=== PATIENT | male | born 1945 | race Caucasian/White ===

== ENCOUNTER 2024-12-14 17:30 | Inpatient (IN) | payer OTHER, MEDICARE ==
[~2024-12-14] VITALS: Ht 167.6 cm; Wt 68.6 kg
--- NOTE | 2024-12-14 17:49 | ELECTROCARDIOGRAPH REPORT ---
[facility] Test Date: 2024-12-14 Test Time: 17:43:46 Pat Name: JAYSHREE SEGOVIA Department: EMERGENCY ROOM Room: Gender: M Administrative Secretary: JENNI : 1945 Requested By: EMILY PADILLA Order Number: [id number] Reading MD: Dr. Elvin Gross Measurements Intervals [place] Rate: 116 P: 0 MO: 0 QRS: 68 QRSD: 96 T: 241 QT: 334 QTc: 465 Interpretive Statements Atrial fibrillation Probable LVH with secondary repol abnrm Electronically Signed On 12-14-2024 18:46:[address] Elvin Gross Please click the below link to view image of tracing.
--- NOTE | 2024-12-14 20:27 | Physician Documentation ---
History of Present Illness ~ Chief Complaint: Hip pain Stated Complaint: TRANSFER Time Seen by MD: 19:21 OK to notify your PCP?: Yes Source: patient, RN/MD, EMS, RN notes reviewed, EMS notes reviewed, old records Mode of Arrival: EMS Exam Limitations: other (dementia) HPI PATIENT SEEN IN BED 8 This patient is a 79 y/o male transferred from [facility] for left hip fracture s/p mechanical fall. Per records from outside facility, patient has a history of afib and is taking Pradaxa. Denies head strike or LOC at time of fall, stating he lost his balance and fell onto his left side. Now complaining of pain to his left leg. Images from [place] shows left hip fracture. All other images negative including CT head and spine. Records indicate patient had echocardiogram showing EF of 25-30% at outside facility. He is somewhat confused, but this is his reported baseline per old records as he has a history of dementia. HPI somewhat limited to record and RN report as patient is unable to give entire history, due to dementia. Tetanus within 5 Years?: Yes Medication Reconciliation Allergies: Coded Allergies: rosuvastatin (Unverified Allergy, Intermediate, 12/14/24) erythromycin base (Verified Allergy, Unknown, 12/14/24) ITCHY Uncoded Allergies: EGGS (Allergy, Unknown, 12/14/24) Scheduled Atorvastatin Calcium* (Lipitor*), 1 TAB PO QAM, (Reported) Carvedilol* (Coreg*), 1 TABLET PO BID, (Reported) Empagliflozin (Jardiance), 1 TAB PO DAILY, (Reported) Furosemide* (Lasix*), 2 TAB PO BID, (Reported) Insulin Glargine,Hum.rec.anlog* (Lantus*), 10 UNITS SUBCUT HS, (Reported) Insulin Lispro (Insulin Lispro), Unknown Dose SUBCUT ACHS, (Reported) Losartan Potassium* (Cozaar*), 1 TAB PO DAILY, (Reported) Tamsulosin Hcl* (Flomax*), 1 CAP PO HS, (Reported) Scheduled PRN Trazodone HCl (Trazodone HCl), 1 TAB PO HS PRN for pain, (Reported) Past Medical History Past Medical History: CVA/TIA/Stroke, Dementia, Atrial Fibrillation, Congestive Heart Failure, Hypertension, Myocardial Infarction, Anemia, Chronic Kidney Disease Smoking Status: Unknown if ever smoked Unable to obtain complete PMH: dementia Review of Systems All Other Systems at this time: Reviewed and Negative Unable to obtain complete ROS: dementia Physical Exam Vital Signs: RN Vital Signs have been reviewed: Yes, Temperature: 98.3, Source: Oral, Heart Rate: 117, Respiratory Rate: 16, BP: 100/52, Pulse Oximetry: 97, Weight: 75.800 Oxygen Flow Rate: 2.0 Physical Exam General: The patient is well developed, well nourished, nontoxic appearing and is in no acute distress. Mild confusion. Skin: [place], warm and dry with no rashes. HEENT: Head was normocephalic and atraumatic. Eyes - pupils equal, round, reactive to light and accommodation. Extraocular movements were intact. Conjunctivae were nonicteric. Ears - bilateral tympanic membranes were normal. The mouth and oropharynx were clear with moist mucous membranes. There were no pharyngeal exudates or erythema. Neck: Supple and nontender. There was no jugular venous distention, lymphadenopathy, thyromegaly or masses. Chest: Clear to auscultation bilaterally without wheezes, rales or rhonchi. No accessory muscle use. No dullness to percussion. Heart: Rate regular and rhythmic. S1, S2. No murmurs. Palpation of the chest wall was normal. No rubs or thrills. Abdomen: Soft, nontender and nondistended. Positive bowel sounds. No guarding or rebound. No hepatosplenomegaly or palpable masses. Extremities: Left lower extremity is shortened, externally rotated ,and tender to palpation over the left greater trochanter. Pitting edema to bilateral lower extremities. Pulses were equal and symmetric. Neurologic: Cranial nerves II-XII were intact. Sensation was intact to light touch throughout. Motor strength was 5/5 in all four extremities. Deep tendon reflexes were intact in both upper and lower extremities. Progress Progress Note 2120: Message left with orthopedist, Dr. Harry for consult. 2124: Paged Hospitalist 2210: Case discussed with hospitalist who agrees to evaluate patient for admission. Results/Orders Reviewed/noted all lab results: Yes Results/Orders Orders - ELVIN GROSS MD Chest,Single View (12/14/24 19:59) Monitor (12/14/24 19:59) Oxygen (12/14/24 19:59) Saline Lock (12/14/24 19:59) Page Hospitalist (12/14/24 21:25) Fill Out Med Reconciliation (12/14/24 21:25) Echocardiogram (12/15/24 00:11) Completed Orders - ELVIN GROSS MD Cbc/Diff (12/14/24 19:59) MG (12/14/24 19:59) Pt Inr (12/14/24 19:59) PTT (12/14/24 19:59) PBNP (12/14/24 19:59) Chest,Single View (12/14/24 19:59) Type And Screen (12/14/24 19:59) BMP (12/14/24 19:59) Hs Troponin I W Calculations (12/14/24 19:59) Pelvis,Limited 1-2 Views (12/14/24 ) Hgb A1c (12/14/24 20:20) Ferritin (12/14/24 20:20) Echocardiogram (12/15/24 00:11) Laboratory Tests Test 12/14/24 20:20 White Blood Count 7.8 Red Blood Count 3.17 L Hemoglobin 9.1 L Hematocrit 28.1 L Mean Corpuscular Volume 88.6 Mean Corpuscular Hemoglobin 28.7 Mean Corpuscular Hemoglobin Concent 32.4 L Red Cell Distribution Width 16.5 H Platelet Count 254 Mean Platelet Volume 7.6 Neutrophils (%) (Auto) 79.6 H Lymphocytes (%) (Auto) 11.4 L Monocytes (%) (Auto) 6.6 Eosinophils (%) (Auto) 1.7 Basophils (%) (Auto) 0.7 Neutrophils # (Auto) 6.2 Lymphocytes # (Auto) 0.9 L Monocytes # (Auto) 0.5 Eosinophils # (Auto) 0.1 Basophils # (Auto) 0.1 CBC Comment Prothrombin Time 17.5 H INR International Normalized Ratio 1.8 Activated Partial Thromboplast Time 49 H Coagulation Comments Sodium Level 141 Potassium Level 3.6 Chloride Level 100 Carbon Dioxide Level 34.7 H Anion Gap 6 L Blood Urea Nitrogen 28 H Creatinine 1.84 H Estimated GFR/1.73 m2 36 BUN/Creatinine Ratio 15.2 Glucose Level 265 H Hemoglobin A1c 11.1 H Calcium Level 9.1 Magnesium Level 1.9 Ferritin 40 Troponin I High Sensitivity 25 Pro-B-Type Natriuretic Peptide 74333 H Albumin 3.3 L Chemistry Comments Re-Evaluation Re-Evaluation : Re-Evaluation: Improved Progress Patient was transferred from [place] for a hip fracture. X-rays were reobtained. Patient was given heparin as well as later pain meds from the hospitalist. I consulted Orthopedic surgery regarding the management of the patient. Laboratory work was reobtained. Patient's chemistry showed some prerenal dehydration and renal insufficiency with a BUN of 28 creatinine 1.84. CO2 shows some hypercarbia with CO2 of 34.7[place] [address]. Laboratory work shows mild anemia with a hemoglobin 9 hematocrit of 28. Urinalysis was within normal limits and reassuring. Preoperative workup was then started. CT scan of the lower extremity showed a comminuted periprosthetic proximal femoral fracture without significant displacement this information was provided to Dr. Rodriguez who kindly agreed to admit the patient for further workup and care. Continuous police or patrol park officer interpretation shows sinus tachycardia heart rate 110s, abnormal, my interpretation. Pulse oximetry monitor interpretation shows hypoxemia at 88% on room air, abnormal, my interpretation. 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 Elvin Gross Measurements Intervals [place] Rate: 116 P: 0 CO: 0 QRS: 68 QRSD: 96 T: 241 QT: 334 QTc: 465 Interpretive Statements Atrial fibrillation Probable LVH with secondary repol abnrm Electronically Signed On 12-14-2024 18:46:[address] Elvin Gross Please click the below link to view image of tracing. EKG Date and Time:12/14/24 174 Electronically Signed by: ELVIN GROSS MD Date and Time: 12/14/24 184 NO PRIMARY CARE PROVIDER~ cc: ~ Chest X-Ray : Interpreted By: both Additional Comments [address] [address] DIAGNOSTIC RADIOLOGY Patient: JAYSHREE SEGOVIA Medical Record: [id number] [facility] : 1945, Age: 79 Sex: Male Location: ER Patient Status: [facility] ER Service Date/Time: 12/14/241958 Ordering Physician: ELVIN GROSS MD Exam: CHEST,SINGLE VIEW CHEST RADIOGRAPH Indication: CHEST PAIN Technique: Single frontal view of the chest was obtained Comparison: None FINDINGS: Lines and Tubes: None Lungs and Pleura: Large right pleural effusion with adjacent airspace disease. Possible small left pleural effusion. Possible 8 mm pulmonary nodule in the left upper lobe. No pneumothorax. Cardiomediastinal contours: Partially obscured Bones: No acute osseous abnormality. IMPRESSION: Large right pleural effusion with adjacent airspace disease. Possible small left pleural effusion. Possible 8 mm pulmonary nodule in the left upper lobe. Correlate with CT. Electronically Signed by:DHAVAL CONRAD MD Date & Time: 12/14/242051 Dictated by: DHAVAL CONRAD MD Dictation date and time: 12/14/242051 Primary Care Provider: NO PRIMARY CARE PROVIDER cc: ELVIN GROSS MD ~ IMAGES REVIEWED BY EDMD DR. GROSS WHO AGREES WITH ABOVE FINDINGS Medical Decision Making Additional info obtained from: old records Differential Dx:Considerations: Include: Fracture(s), Encephalopathy, Other Departure Time of Disposition: 21:25 Disposition: ADMITTED INPATIENT Admitted to Inpatient Unit: yes, to hospitalist Admission Level of Care: Ortho with Tele Impression: Primary Impression: Hip fracture, left Qualified Codes: S72.002A - Fracture of unspecified part of neck of left femur, initial encounter for closed fracture Additional Impressions: Renal insufficiency CHF (congestive heart failure) Qualified Codes: I50.9 - Heart failure, unspecified Condition: Guarded Referrals: NO PRIMARY CARE PROVIDER (PCP) Education Educated: Patient Educated regarding: diagnosis, treatment, prognosis, need for follow up Critical Care Note Total Time (mins): 30 Critical Care Note The very real possibility of a deterioration of this patient's condition required the highest level of my preparedness for sudden, emergent intervention. I provided critical care services, which included medication orders, frequent reevaluations of the patient's condition and response to treatment, ordering and reviewing test results, and discussing the case with various consultants. Excludes time spent performing separately billable procedures. The critical care time associated with the care of the patient was 30 minutes. Signature Scribe Signature: Scribed for Elvin Gross MD by Gail Ugarte . 12/15/24 05:39 Attestation: The note accurately reflects work and decisions made by me.Elvin Gross MD 12/19/24 22:43 ELVIN GROSS MD Dec 14, 2024 20:27
[2024-12-14 20:31] LABS: MEAN PLATELET VOLUME 7.6 FL (7.4-10.4); RED CELL DISTRIBUTION WIDTH 16.5 % (11.5-14.5)
[2024-12-14 20:42] LABS: APTT 49 SECONDS (22-32); INR 1.8 INR
[2024-12-14 20:53] LABS: CREATININE 1.84 MG/DL (0.60-1.10); PRO BRAIN NATRIURETIC PEPTIDE 20226 PG/ML (0-450); TOTAL CARBON DIOXIDE 34.7 MMOL/L (24-32); eCRCL 30 ML/MIN; eGFR 36 ML/MIN
--- NOTE | 2024-12-14 20:54 | RADIOLOGY REPORT ---
CHEST RADIOGRAPH Indication: CHEST PAIN Technique: Single frontal view of the chest was obtained Comparison: None FINDINGS: Lines and Tubes: None Lungs and Pleura: Large right pleural effusion with adjacent airspace disease. Possible small left pl eural effusion. Possible 8 mm pulmonary nodule in the left upper lobe. No pneumothorax. Cardiomediastinal contours: Partially obscured Bones: No acute osseous abnormality. IMPRESSION: Large right pleural effusion with adjacent airspace disease. Possible small left pleural effusion. Possible 8 mm pulmonary nodule in the left upper lobe. Correlate with CT.
[2024-12-14] MEDS ORDERED: EMPA10TA PO (21:12)
[2024-12-14] MEDS ORDERED: CARV-50 PO (21:12)
[2024-12-14] MEDS ORDERED: LOSA-415 PO (21:12)
[2024-12-14] MEDS ORDERED: FURO-150 PO (21:14)
[2024-12-14] MEDS ORDERED: LANTUS SUBCUT (21:53)
[2024-12-14] MEDS ORDERED: INSU100V49 SUBCUT (21:58)
[2024-12-14] MEDS ORDERED: magnesium sulf-water 2g/50mL 50 ML IV PRN (22:20)
[2024-12-14] MEDS ORDERED: ondansetron/PF 4mg/2ml inj IV PRN (22:20)
[2024-12-14] MEDS ORDERED: potassium Cl 40MEQ/1/2NS 520ml 520 ML IV PRN (22:20)
[2024-12-14] MEDS ORDERED: HYDROcodone/acetaminophen 5mg/325mg tablet PO PRN (22:20)
[2024-12-14] MEDS ORDERED: mag hydrox/Alum hydrox/simeth 30ml oral suspension PO PRN (22:20)
[2024-12-14] MEDS ORDERED: magnesium hydroxide 30ml (MOM) UD suspension PO PRN (22:20)
[2024-12-14] MEDS ORDERED: HYDROmorphone/PF 0.2 MG/ML SYRINGE IV PRN (22:20)
[2024-12-14] MEDS ORDERED: bisacodyl 10mg suppository rectal RC PRN (22:20)
[2024-12-14] MEDS ORDERED: magnesium Cl slow-release 64mg tablet PO PRN (22:20)
[2024-12-14] MEDS ORDERED: potassium Cl 20 mEq SR tablet PO PRN (22:20)
[2024-12-14] MEDS ORDERED: HYDROmorphone inj. 0.5 MG/0.5 ML DISP.SYRIN IV PRN (22:20)
[2024-12-14] MEDS ORDERED: magnesium sulf-water 4G/100mL 100 ML IV PRN (22:20)
--- NOTE | 2024-12-14 22:27 | HISTORY AND PHYSICAL-Residence ---
History & Physical Providers to CC Resident Creating Document: SURYA WILEY, RES ~ History of Present Illness Reason for Admit\Complaint: Left hip pain History of Present Illness This is a 79-year-old male with a history of stroke, dementia, AFib on Pradaxa, CHF with reduced ejection fraction 25-30%, hypertension, [place], chronic anemia, CKD was transferred from [facility] for a left intertrochanteric hip fracture. Patient has baseline dementia and is unable to provide reliable history. He is awake but not oriented to time place, person. He thinks he was in the hospital for more than two days. Per records from [facility], he had a left intertrochanteric periprosthetic fracture and they were not able to operate on him due to unavailability of anesthesia. Hence he was transferred to our facility. Patient mentions that he has pain in his left leg but is unable to rate the pain describe any further about it. Per records he fell due to loss of balance on his left side and injured his left elbow, leg. There was no head strike or loss of consciousness at the time of fall according to his . Patient is not able to remember his box toe maker and does not have a PCP. According to him his gives him medications every day. He also mentions he has trouble breathing occasionally but is unable to describe further. ED course at [facility]: CT head and spine showed no acute intracranial abnormalities except for degenerative changes in spine. CT pelvis without contrast showed acute comminuted minimally displaced periprosthetic fracture in the left hip. Also showed left total hip arthroplasty with intact hardware. Labs reviewed. He was transferred for orthopedic surgery. Allergies: Coded Allergies: rosuvastatin (Unverified Allergy, Intermediate, 12/14/24) erythromycin base (Verified Allergy, Unknown, 12/14/24) ITCHY Uncoded Allergies: EGGS (Allergy, Unknown, 12/14/24) Home Medications Home Medications Active Reported Insulin Lispro 100 Unit/Ml Vial Unknown Dose SUBCUT ACHS Lantus* (Insulin Glargine) 100 Unit/1 Ml Vial 10 Units SUBCUT HS 30 Days Lasix* (Furosemide) 20 Mg Tablet 2 Tab PO BID Jardiance (Empagliflozin) 10 Mg Tablet 1 Tab PO DAILY 30 Days Coreg* (Carvedilol) 12.5 Mg Tablet 1 Tablet PO BID Cozaar* (Losartan Potassium) 25 Mg Tablet 1 Tab PO DAILY 30 Days Past Medical History Past Medical History CVA/TIA/Stroke, Dementia, Atrial Fibrillation, Congestive Heart Failure, Hypertension, Myocardial Infarction, Anemia, Chronic Kidney Disease Past Surgical History Surgical History Comment Left hip total arthroplasty. Further history could not be obtained Past Social History Social History Comment Unreliable but patient mentions that he has smoked at the age of 16 for a few years and quit and restarted again. He smoked cigarettes. He mentions that he consumed alcohol in the past but quit now. Denies any drug use. He lives at home with his who takes care of him. He uses a walker to ambulate at home ROS ROS Unable to obtain Unable to obtain: dementia Exam Vitals: Vital Signs Date Time Temp Pulse Resp B/P (MAP) Pulse Ox O2 Delivery O2 Flow Rate FiO2 12/14/24 21:07 99 Nasal Cannula* 2 28 12/14/24 21:04 98.2 126 16 118/75 (89) General: General: The patient is well developed, well nourished, nontoxic appearing and is in no acute distress. Pale appearing, Mild confusion, not oriented to person place or time. Currently on 2 L oxygen, unknown if he uses oxygen at home. Skin: [place], warm and dry with no rashes. HEENT: Head was normocephalic and atraumatic. Eyes - pupils equal, round, reactive to light and accommodation. Extraocular movements were intact. Conjunctivae were nonicteric. Ears - bilateral tympanic membranes were normal. The mouth and oropharynx were clear with moist mucous membranes. There were no pharyngeal exudates or erythema. Neck: Supple and nontender. There was no jugular venous distention, lymphadenopathy, thyromegaly or masses. Chest: Decreased breath sounds in the right lower lung, no wheezes, rales or rhonchi. No accessory muscle use. Heart: Rate regular and rhythmic. S1, S2. No murmurs. Palpation of the chest wall was normal. No rubs or thrills. Abdomen: Soft, nontender and nondistended. Positive bowel sounds. No guarding or rebound. No hepatosplenomegaly or palpable masses. Extremities: Left lower extremity is shortened, externally rotated ,and tender to palpation over the left greater trochanter. Pitting edema to bilateral lower extremities. Pulses were equal and symmetric. Neurologic: Cranial nerves II-XII were intact. Sensation was intact to light touch throughout. Other exam was limited due to acute fracture Diagnostic Data Last Recorded Lab Results: 12/14/24201912/14/242019 Diagnostic Data: Laboratory Tests Test 12/14/24 20:20 Prothrombin Time 17.5 SECONDS (9.0-12.0) H INR International Normalized Ratio 1.8 INR Activated Partial Thromboplast Time 49 SECONDS (22-32) H Coagulation Comments Advance Care Planning Advanced Care plannin - 30 Minutes ( Jess [phone] is his POA. Consult in the a.m. to obtain code status. Currently admitting as a full code.) Additional Plan Acute commuted minimally displaced left intertrochanteric periprosthetic fracture S/p total hip arthroplasty with intact hardware CT pelvis without contrast shows acute comminuted minimally displaced left periprosthetic intertrochanteric fracture. Dr. Harry was consulted by the ED physician. NPO after midnight for possible surgery. Hold Pradaxa for anticipated surgery. Type and screen ordered. Revised cardiac risk index is three points which is 15% risk of major cardiac event. Re-evaluate in the a.m. with box toe maker and anesthesiologist if patient can be cleared for hip surgery given extensive cardiac history. Atrial fibrillation with RVR EKG shows atrial fibrillation with RVR with heart rate of 118. One dose of IV metoprolol given. Continue home medication carvedilol 12.5 mg b.i.d. after med rec. Med rec is pending. Hold Pradaxa. Amadou Vasc score greater than two. Continue telemetry monitoring Acute hypoxemic respiratory failure CHF with reduced ejection fraction, EF 25-30% Large right pleural effusion Metabolic alkalosis Pulmonary hypertension Pro BNP is . Chest x-ray shows large right pleural effusion and possible small left pleural effusion. We need a consent from for thoracocentesis as patient is unable to make decisions. Thoracentesis not ordered yet. Evaluate in a.m. with repeat chest x-ray if effusion size decreases after administering Lasix. Patient takes Lasix 20 mg b.i.d. at home. Started on Lasix IV 40 mg b.i.d. scheduled. Monitor I&O. Continue losartan, Jardiance and carvedilol after med rec. Consider adding spironolactone/Entresto with caution given history of CKD. Echocardiogram done at [facility] today shows EF of 25-30% with left ventricular hypertrophy, severely reduced right ventricle function and RV, LV dilation. Pulmonary artery systolic pressure is 57 mmHg. ABG ordered in the view of metabolic alkalosis. Follow up. Respiratory therapy consulted. Duo nebs q.4 PRN. GLADYS versus CKD, unknown stage and baseline Possible cardiorenal syndrome BUN is elevated 28, creatinine 1.84. Patient does have a history of CKD with unknown baseline. Continue monitoring CMP. Avoid nephrotoxic medication. Patient does not have a PCP hence baseline is unknown. Consider renal ultrasonogram and urine lytes if creatinine continues to trend upwards. Normocytic normochromic anemia Likely anemia of chronic disease secondary to CKD Hemoglobin is 9.1. Unknown baseline. Iron, TIBC, serum ferritin, FOBT ordered. Follow up. Patient is unable to give any history about melena or GI bleed. He is currently on Pradaxa which is on hold for possible surgery. Mild protein calorie malnutrition Albumin 3.3. Ensure t.i.d. Hypertension Continue home medications losartan 25 mg and Coreg 12.5 mg b.i.d. after med rec. Type 2 diabetes mellitus Follow up with A1c and lipid panel. Blood sugar at [place] was 313. Patient takes 10 units Lantus and lispro as needed at home. Currently on hyperglycemia protocol with 15 Units Lantus Per Weight calculation. Hyperlipidemia Continue atorvastatin 40 mg p.o. daily after med rec. BPH Continue medication Flomax 0.4 mg after med rec Code Status: Full code, reassess in the a.m. calling his DVT Prophylaxis: Heparin Analgesia/Sedation: [place], morphine p.r.n. Lines/Tubes: PIV Gi Prophylaxis: None Nutrition: NPO after midnight PT: Yes, nonweightbearing for now, recommendations per ortho Prognosis: Guarded Disposition: Admit to ortho floor with telemetry monitoring Surya Kerr MD Internal Medicine Resident PGY-1 I saw and discussed the pt with the resident agree with plan of care as documented Consult Cardiology, Ortho and Pulmonary (for effusion) OK with Lasix Monitor closely Monitor labs as well. Thank you Date of Service: Dec 14, 2024 Billing Provider: ISAMAR JOVEL MD,SURYA KERR, RES Dec 14, 2024 22:27 ISAMAR JOVEL MD Dec 15, 2024 02:44
[2024-12-14] MEDS ORDERED: ATOR40TA PO (22:36)
[2024-12-14] MEDS ORDERED: TAMS-55 PO (22:36)
[2024-12-14] MEDS ORDERED: TRAZ-251 PO (22:37)
[2024-12-14] MEDS ORDERED: dextrose 50%-water 50ml dispensing syringe IV PRN ×2 (23:15)
[2024-12-14] MEDS ORDERED: glucagon, human recombinant 1mg kit SUBCUT PRN (23:15)
[2024-12-14] MEDS ORDERED: DEXTROSE 15 GM of carb/4 tabs (each vial/BOTTLE has 4 tablets) PO PRN ×2 (23:15)
[2024-12-14] MEDS ORDERED: ipratropium/albuterol 3ml nebule NEB PRN (23:15)
[2024-12-15] VITALS (25 sets, daily range): BP systolic 88–126; BP diastolic 40–75; PULSE 59–132; RESP 10–18; TEMP 97.3–98.1; O2SAT 87–100
[2024-12-15] MEDS: metoprolol tartrate 1mg/ml inj IV SCH (00:25)
[2024-12-15] MEDS: insulin glargine (Lantus) pen - multi-dose SQ ONE (00:28)
[2024-12-15] MEDS: INSULIN LISPRO 100 UNIT/ML INSULN.PEN MULTI-DOSE SQ ONE (00:28)
[2024-12-15] MEDS: insulin glargine (Lantus) pen - multi-dose SQ SCH ×2 (00:49→22:51)
[2024-12-15 01:04] LABS: ABG BASE EXCESS 7.5 mmol/L (-2.0-3.0); ABG HCO3 31.9 mmol/L (21.0-28.0); ABG OXYGEN SATURATION 94.5 % (94.0-98.0); ABG PCO2 (T) 44.7 mmHg (35.0-48.0); ABG PH (T) 7.471 (7.350-7.450); ABG PO2 (T) 69.2 mmHg (83.0-108.0); FCOHb 0.3 % (0.5-1.5); FHHb 5.5 % (0.0-5.0); FIO2 24.0 mmHg/%; FLOW 1 L/min; FMetHb 0.3 % (0.0-1.5); FO2Hb 93.9 % (94.0-98.0); MODE NASAL CANNULA; PATIENT TEMPERATURE 36.8; TOTAL HEMOGLOBIN 8.7 G/dl (13.5-17.5)
[2024-12-15 01:34] LABS: % IRON SATURATION 12 % (11-46)
[2024-12-15] MEDS: furosemide 10 MG/1 ML 10ml inj IV SCH ×2 (02:37→22:28)
[2024-12-15 02:52] LABS: MEAN PLATELET VOLUME 7.5 FL (7.4-10.4); RED CELL DISTRIBUTION WIDTH 16.7 % (11.5-14.5)
[2024-12-15 03:04] LABS: CHOL/HDL RATIO 3.0 (0.00-4.99); CREATININE 1.97 MG/DL (0.60-1.10); LDL CHOLESTEROL 48 MG/DL (50-100); TOTAL CARBON DIOXIDE 36.3 MMOL/L (24-32); eCRCL 28 ML/MIN; eGFR 33 ML/MIN
[2024-12-15] MEDS: INSULIN LISPRO 100 UNIT/ML INSULN.PEN MULTI-DOSE SQ SCH (07:00)
[2024-12-15] MEDS: lactose-reduced food (Ensure Enlive) - 237ml bottle PO SCH (08:00)
[2024-12-15] MEDS: heparin, porcine 5000 units/ml vial SQ SCH (08:37)
[2024-12-15] MEDS: docusate sod 100mg capsule PO SCH (08:37)
[2024-12-15] MEDS: K and/or MAG REPLACEMENT MC SCH (08:40)
[2024-12-15] MEDS: potassium Cl 20 mEq SR tablet PO PRN (08:40)
[2024-12-15] MEDS: HYDROcodone/acetaminophen 10/325mg tab PO PRN (10:30)
--- NOTE | 2024-12-15 11:58 | PROGRESS NOTE ---
Progress Note Ortho Ortho Consult ROS ROS No new complaints Problem/Assessment/Plan Additional Plan imaging fromn outside is inadequate, ordered new xr and CT Results/Orders Result Diagram: 12/15/24 0234 12/15/24 0234 BRITTANY NEVES Jr., MD Dec 15, 2024 11:58
[2024-12-15] MEDS: regadenoson 0.4mg/5ml syringe IV ONE (12:20)
--- NOTE | 2024-12-15 14:36 | RADIOLOGY REPORT ---
CLINICAL INDICATION: periprosthetic fx TECHNIQUE: DI HIP UNILATERAL 2 VIEWS Comparison: None FINDINGS/IMPRESSION: : Left hip arthroplasty in place. Proximal left femoral cerclage wire. There is a mildly displaced periprosthetic fracture of the proximal left femur. Heterotopic ossification is seen adjacent to the proximal left femur. Bony demineralization. Calcified athero sclerosis.
--- NOTE | 2024-12-15 15:02 | PROGRESS NOTE- Residence ---
Progress Note - Resident Providers to CC Resident Creating Document: NORA FAITH, RES ~ Antibiotic Timeout Antibiotic Ordered?: No Subjective The patient has been evaluated at the bedside. Reports improvement of hip pain. Stated that he did not ask for help. Dr. Nieto at the bedside recommended Lexiscan. The patient accepted the exam. Objective Vital Signs Date Time Temp Pulse Resp B/P (MAP) Pulse Ox O2 Delivery O2 Flow Rate FiO2 12/15/24 12:35 118 18 119/66 97 Nasal Cannula 2.0 12/15/24 10:47 97.8 12/15/24 00:56 24 Physical exam: General: Awake, oriented to person and place but not in time. Non cooperative during physical exam. HEENT: Conjunctive are pale, sclerae clear, no icterus, pupil is equal in both sides, reactive to light, no ear discharge, no pharyngeal erythema or an edema. Neck: Supple, no JVD, no lymphadenopathy and thyromegaly. Chest: Diminished air entry in the right side of the thorax. Mild wheezing noticed, no crackles or rhonchi evidenced. Cardiovascular: S1-S2 regular sinus rhythm and, regular rate, no gallops, no rubs, no murmurs Abdomen: No visible peristalsis, Bowel sounds present on auscultation, soft, nontender, no guarding, no rigidity Extremities: No obvious deformities, 1+ pedal edema bilaterally, capillary refill intact, peripheral pulsations are intact on both sides, left lower extremity shortened it, tender to palpation in the level of the left hip. Central Nervous System: No focal neurological deficits, no motor or sensory weakness in all 4 extremities, could move all 4 extremities, 2+ deep tendon reflexes, negative Babinski. Musculoskeletal: left lower extremity shortened it, tender to palpation in the level of the left hip, no scoliosis and back tenderness. Skin: Warm and dry. Result Diagram: 12/15/24 0234 12/15/24 0234 Coagulation Studies Laboratory Tests Test 12/14/24 20:20 Prothrombin Time 17.5 SECONDS (9.0-12.0) H INR International Normalized Ratio 1.8 INR Activated Partial Thromboplast Time 49 SECONDS (22-32) H Coagulation Comments Assessment Assessment 79-year-old male patient came to the hospital transferred from [facility] due to left intertrochanteric hip fracture. Per records of [facility] the patient was transferred to [facility] due to unavailability of anesthesia. Plan Plan Acute commuted minimally displaced left intertrochanteric periprosthetic fracture S/p total hip arthroplasty with intact hardware CT pelvis without contrast shows acute comminuted minimally displaced left periprosthetic intertrochanteric fracture. Dr. Harry was consulted by the ED physician. NPO after midnight for possible surgery. Hold Pradaxa for anticipated surgery. Type and screen ordered. Revised cardiac risk index is three points which is 15% risk of major cardiac event. Re-evaluate in the a.m. with dye range feeder and anesthesiologist if patient can be cleared for hip surgery given extensive cardiac history. 12/15/2024: Dr. Harry evaluated the patient. Ordered CT scan and x-ray of the hip. The patient will need cardiac clearance. Hip x-ray: Left hip arthroplasty in place. Proximal left femoral cerclage wire. There is a mildly displaced periprosthetic fracture of the proximal left femur. Heterotopic ossification is seen adjacent to the proximal left femur. Bony demineralization. Calcified athero sclerosis. Atrial fibrillation with RVR EKG shows atrial fibrillation with RVR with heart rate of 118. One dose of IV metoprolol given. Continue home medication carvedilol 12.5 mg b.i.d. after med rec. Med rec is pending. Hold Pradaxa. Amadou Vasc score greater than two. Continue telemetry monitoring. 12/15/2024: Dr. Figueroa was consulted for cardiac clearance. The patient currently denies chest pain. Started on carvedilol 12.5 mg b.i.d. Holding Pradaxa for possible procedure. Acute hypoxemic respiratory failure CHF with reduced ejection fraction, EF 25-30% Large right pleural effusion Metabolic alkalosis Pulmonary hypertension Pro BNP is . Chest x-ray shows large right pleural effusion and possible small left pleural effusion. We need a consent from for thoracocentesis as patient is unable to make decisions. Thoracentesis not ordered yet. Evaluate in a.m. with repeat chest x-ray if effusion size decreases after administering Lasix. Patient takes Lasix 20 mg b.i.d. at home. Started on Lasix IV 40 mg b.i.d. scheduled. Monitor I&O. Continue losartan, Jardiance and carvedilol after med rec. Consider adding spironolactone/Entresto with caution given history of CKD. Echocardiogram done at [facility] today shows EF of 25-30% with left ventricular hypertrophy, severely reduced right ventricle function and RV, LV dilation. Pulmonary artery systolic pressure is 57 mmHg. ABG ordered in the view of metabolic alkalosis. Follow up. Respiratory therapy consulted. Duo nebs q.4 PRN. 12/15/2024: Dr. Nieto consulted for cardiac clearance. Lexiscan: Mild non reversible defect is present in the inferior wall which may represent small chronic infarct versus artifact. Left ventricular ejection fraction is 28%. Echocardiogram: RVSP 29 mmHg, LVEF 25%. Left ventricle normal LV size and function. Mild concentric hypertrophy. Decreasing Lasix to 20 mg b.i.d. Daily weights. Strict I&O. GLADYS versus CKD, unknown stage and baseline Post renal GLADYS-ruled out: Possible cardiorenal syndrome BUN is elevated 28, creatinine 1.84. Patient does have a history of CKD with unknown baseline. Continue monitoring CMP. Avoid nephrotoxic medication. Patient does not have a PCP hence baseline is unknown. Consider renal ultrasonogram and urine lytes if creatinine continues to trend upwards. 12/15/2024: Ordered urine lytes. Not on IV fluids due to proBNP of . The patient does not have history of congestive heart failure. Kidney ultrasound: Slightly small bilateral kidneys without evidence of hydronephrosis. Partially obscured urinary bladder due to overlying bowel gas. Normocytic normochromic anemia Likely anemia of chronic disease secondary to CKD Hemoglobin is 9.1. Unknown baseline. Iron, TIBC, serum ferritin, FOBT ordered. Follow up. Patient is unable to give any history about melena or GI bleed. He is currently on Pradaxa which is on hold for possible surgery. 12/15/2024: Follow-up occult stool. Iron 35, TIBC 295, percentage saturation 12, ferritin 40. Iron deficiency anemia. Mild protein calorie malnutrition Albumin 3.3. Ensure t.i.d. Hypertension Continue home medications losartan 25 mg and Coreg 12.5 mg b.i.d. after med rec. 12/15/2024: Med reconciliation done. Carvedilol 12.5 mg continued. Holding losartan due to soft blood pressure. Type 2 diabetes mellitus Follow up with A1c and lipid panel. Blood sugar at [place] was 313. Patient takes 10 units Lantus and lispro as needed at home. Currently on hyperglycemia protocol with 15 Units Lantus Per Weight calculation. 12/15/2024: Continue hyperglycemia/hypoglycemia protocol. Increasing Lantus to 18 units HS. Continue short-acting insulin medium dose sliding scale. Hyperlipidemia Atorvastatin 40 mg daily. BPH Tamsulosin 0.4 mg daily. Code Status: Full code. DVT Prophylaxis: Heparin 5000 units b.i.d. Analgesia/Sedation: [place], morphine p.r.n. Lines/Tubes: PIV Gi Prophylaxis: None Nutrition: 75 carb controlled diet. NPO after midnight PT: Yes, nonweightbearing for now, recommendations per ortho Prognosis: Guarded. Disposition: Continue medical management. Dr. Nieto following for cardiac clearance. Dr. Harry following for left intertrochanteric fracture. Nora Ignacio Internal Medicine Resident [facility] Date of Service: Dec 15, 2024 Billing Provider: KATT MILAN MD Common Visit Codes: [id number] INP/OBS CARE(HIGH) NORA FAITH, RES Dec 15, 2024 15:02 KATT MILAN MD Dec 16, 2024 08:53
--- NOTE | 2024-12-15 16:16 | RADIOLOGY REPORT ---
RENAL ULTRASOUND CLINICAL HISTORY: kidney failure TECHNIQUE: Multiple grayscale ultrasound images were obtained through the kidneys and urinary bladder . COMPARISON: None FINDINGS: Right kidney: Measures 8.6 x 4.4 x 4.8 cm. No hydronephrosis. Left kidney: Measures 9.1 x 4.2 x 5.3 cm. No hydronephrosis. Left kidney is partially obscured due to overlying bowel gas. Urinary bladder: Unremarkable. Bilateral ureteral jets are visualized. A Jain catheter is in place. IMPRESSION: 1. Slightly small bilateral kidneys without evidence of hydronephrosis. 2. Partially obscured urinary bladder due to overlying bowel gas.
--- NOTE | 2024-12-15 16:26 | RADIOLOGY REPORT ---
Reason for study/Clinical History: medical clearence Comparison Study: None Myocardial Perfusion Study with SPECT Technique: The patient received an intravenous injection of 8 mCi of technetium-99m Sestamibi while at rest. After a short delay, SPECT tomographic images of the heart were obtained. The patient the n went to the stress lab where they received an intravenous Lexiscan utilizing standard protocol. 46 mCi of technetium-99m Sestamibi was injected intravenously immediately after the start of the infu michael. Gated SPECT tomographic images of the heart were acquired and processed. Findings: Rotating planar images show no significant attenuation artifact. The left ventricular size is within normal limits. Mild non reversible defect is present in the inferior wall. The left ventricular ejection fraction is 28 %. (normal greater than 50%) Impression: Mild non reversible defect is present in the inferior wall which may represent small chronic infarct versus artifact. Left ventricular ejection fraction is 28%.
--- NOTE | 2024-12-15 16:30 | RADIOLOGY REPORT ---
Procedure: CT CT CHEST Reason for study/Clinical History: right pleural effusion Comparison Study: Chest radiograph 12/14/2024. TECHNIQUE: Multidetector CT of the chest was performed from the lung apices to the upper abdomen with out the use of intravenous contract. Axial, coronal and sagittal multiplanar reformats were performed . Radiation Dose Information: CT Dose: CTDI volume is 17.26 mGy. Dose-length product is 661.73 mGy*cm The dose indicators for CT are the volume Computed Tomography (CT) Dose Index (CTDIvol) and the Dose Length Product (DLP), and are measured in units of mGy and mGy-cm, respectively. These indicators are not patient dose, but values generated from the CT scanner acquisition factors. The report includes radiation exposure data for exposures received during this examination. FINDINGS: Lower neck: Thyroid appears slightly atrophic. Lungs: Near complete collapse of the right lower lobe. Dependent sublobar atelectasis in the remaini ng lobes. No suspicious pulmonary nodule. Heart/Vascular Structures: Cardiomegaly. Hypodensity of the blood pool relative to the myocardium wilde ggesting anemia. Aortic valvular and coronary artery calcification. No pericardial effusion. Ascendi ng aorta measures 3.9 cm. Normal caliber pulmonary trunk. Lymph Nodes: No abnormally enlarged lymph nodes. Pleura: Large right and moderate left pleural effusions. No pneumothorax. Musculoskeletal: Multiple remote right posterior rib fracture deformities. Osseous degenerative davila es. Soft tissues: Normal. Upper abdomen: 1.5 cm hypodensity in the left hepatic lobe, possibly a cyst although incompletely neto racterized. Additional subcentimeter hepatic hypodensities, too small to further characterize. 1.5 cm left renal cyst. Nonspecific bilateral adrenal thickening. Small hiatal hernia. IMPRESSION: 1. Large right and moderate left pleural effusions with near complete collapse of the right lower lob e and dependent sublobar atelectasis in the remaining lobes. 2. Cardiomegaly. Coronary artery disease. 3. 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 Radiation optimization: All CT scans at this facility use at least one of these dose optimization damaris hniques: automated exposure control mA and/or kV adjustment per patient size (includes targeted exam s where dose is matched to clinical indication) or iterative reconstruction.
[2024-12-15 17:49] LABS: LEUKOCYTE ESTERASE ,URINE NEGATIVE (Neg); NITRITES, URINE NEGATIVE (Neg); OCCULT BLOOD,URINE TRACE-INTACT (Neg)
[2024-12-15 18:01] LABS: UA COLLECTION TYPE NON-SPECIFIED
[2024-12-15 18:03] LABS: OSMOLALITY UA 532.0 MOSM/K (50-1400); SQUAMOUS EPITHELIAL CELL,UR FEW /LPF (FEW); YEAST MODERATE /HPF (NEGATIVE)
[2024-12-15 18:11] LABS: CREATININE,URINE RANDOM 77.0 MG/DL; TOTAL PROTEIN,URINE RANDOM 45.6 MG/DL; UA UREA RANDOM 492.0 MG/DL
[2024-12-15] MEDS ORDERED: DOBUTamine-DoBUTrex 500mg/D5W 250 ML IV SCH (18:55)
[2024-12-15] MEDS: EMPAGLIFLOZIN 10 MG TABLET PO SCH (19:36)
[2024-12-15] MEDS: digoxin 250mcg/ml 2ml ampule IV ONE (19:39)
--- NOTE | 2024-12-15 19:44 | RADIOLOGY REPORT ---
EXAM: CT CT LOWER EXTREMITY INDICATION: left hip periprosthetic fx TECHNIQUE: Axial images of pelvis with bilateral lower extremities have been obtained along with jade nal and sagittal reformatted images. All CT scans at this facility use dose modulation, iterative rec onstruction, and/or weight based dosing when appropriate to reduce radiation dose to as low as reason ably achievable. COMPARISON: None FINDINGS: BONES: In regards to the clinical question, comminuted periprosthetic proximal femoral fracture witho ut significant displacement however with anterior cortical step-off best appreciated on sagittal plan e. Normal positioning of the acetabular cup. Cerclage wire of the proximal femoral diaphysis. Predom inant fracture plane at the level of the lesser trochanter and base of the greater trochanter, above of the cerclage wire. Mild right hip degenerative change MUSCLES: Intramuscular hematoma along the vastus intermedius with significant swelling. JOINT SPACES: Limited evaluation of the hip joint for joint fluid secondary to streak artifact TENDONS/LIGAMENTS: Intact. OTHER: Vascular calcifications. Surrounding subcutaneous tissue edema/soft tissue contusion IMPRESSION: 1. In regards to the clinical question, comminuted periprosthetic proximal femoral fracture without s ignificant displacement however with anterior cortical step-off. 2. Predominant fracture plane at the level of the lesser trochanter and base of the greater trochante r, above of the cerclage wire. 3. Intramuscular hematoma along the vastus intermedius with significant swelling.
[2024-12-15] MEDS: DOBUTamine-DoBUTrex 500mg/D5W 250 ML IV SCH (19:59)
[2024-12-15 20:32] LABS: CREATININE 2.01 MG/DL (0.60-1.10); eCRCL 27 ML/MIN; eGFR 32 ML/MIN
[2024-12-16] VITALS (18 sets, daily range): BP systolic 91–120; BP diastolic 46–73; PULSE 63–125; RESP 10–24; TEMP 97.2–98; O2SAT 92–98
[2024-12-16] MEDS: digoxin 250mcg/ml 2ml ampule IV SCH (03:43)
[2024-12-16 06:55] LABS: MEAN PLATELET VOLUME 8.1 FL (7.4-10.4); RED CELL DISTRIBUTION WIDTH 16.4 % (11.5-14.5)
[2024-12-16 07:11] LABS: CREATININE 1.77 MG/DL (0.60-1.10); PRO BRAIN NATRIURETIC PEPTIDE 13087 PG/ML (0-450); TOTAL CARBON DIOXIDE 32.4 MMOL/L (24-32); eCRCL 31 ML/MIN; eGFR 37 ML/MIN
--- NOTE | 2024-12-16 08:53 | CONSULTATION REPORT ---
History of Present Illness Providers to CC ~ Reason for Admit\Admit Dx: Left hip pain Refering MD: Dr Candelaria History of Present Illness The patient is a 71-year-old man who was transferred from [facility] with a left hip fracture. The patient is a total hip prosthesis and was noted to have a fracture involving the greater trochanter. He was transferred to [facility]. Because of his medical issues , they felt that he was too frail to undergo anesthesia with a personnel they have at [facility]. He denies any other kind of injury and states he had a mechanical fall and was not due to syncope. He complains of left lateral hip pain no knee leg or ankle pain. Allergies: Coded Allergies: rosuvastatin (Unverified Allergy, Intermediate, 12/14/24) erythromycin base (Verified Allergy, Unknown, 12/14/24) ITCHY Uncoded Allergies: EGGS (Allergy, Unknown, 12/14/24) Home Medications Home Medications Active Reported Trazodone HCl 50 Mg Tablet 1 Tab PO HS PRN 30 Days Flomax* (Tamsulosin HCl) 0.4 Mg Cap.sr.24h 1 Cap PO HS 30 Days Lipitor* (Atorvastatin Calcium) 40 Mg Tablet 1 Tab PO QAM 30 Days Insulin Lispro 100 Unit/Ml Vial Unknown Dose SUBCUT ACHS Lantus* (Insulin Glargine) 100 Unit/1 Ml Vial 10 Units SUBCUT HS 30 Days Lasix* (Furosemide) 20 Mg Tablet 2 Tab PO BID Jardiance (Empagliflozin) 10 Mg Tablet 1 Tab PO DAILY 30 Days Coreg* (Carvedilol) 12.5 Mg Tablet 1 Tablet PO BID Cozaar* (Losartan Potassium) 25 Mg Tablet 1 Tab PO DAILY 30 Days Physical Exam Last Vital Signs Recorded: Temperature: 98.0, Source: Oral, Heart Rate: 67, Respiratory Rate: 16, BP: 103/59, Pulse Oximetry: 95, Weight: 75.800 General Appearance: alert, no apparent distress Extremities Left leg is well aligned with no shortening. There was some tenderness over the lateral hip region but no groin tenderness. The thigh knee leg and foot are in good position with no tenderness. He has got good cap refill distally. X-rays and CT scan were done. This shows a fracture involving the greater trochanter without any avulsion or separation. He has a femoral Press-Fit stem in place with a cerclage wire with the proximal femur and appears to be intact. There was no dislocation of the prosthesis. Results Results/Orders Results/Orders X-ray and CT scan are as described in the physical exam section Diagram Lab Result Diagram: 12/16/24 0600 12/16/24 06 Assessment/Plan Problems/Diagnosis: (1) Hip fracture, left Additional Plan This does not require surgery and the pain management is appropriate going forward. Physical therapy is allowed weight-bearing as tolerated. Transfer of this patient to this facility was unnecessary as surgery is not indicated. Thank you for this consultation Problem Qualifiers (1) Hip fracture, left: Qualified Codes: S72.002A - Fracture of unspecified part of neck of left femur, initial encounter for closed fracture BRITTANY NEVES Jr., MD Dec 16, 2024 08:53
--- NOTE | 2024-12-16 11:55 | ELECTROCARDIOGRAPH REPORT ---
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 BEAU Martinez Measurements Intervals [place] Rate: 123 P: 0 MI: 0 QRS: 44 QRSD: 95 T: 245 QT: 330 QTc: 472 Interpretive Statements Atrial fibrillation Ventricular premature complex Low voltage, extremity leads Repol abnrm suggests ischemia, diffuse leads Electronically Signed On 12-16-2024 17:57:[address] BEAU Martinez Please click the below link to view image of tracing.
--- NOTE | 2024-12-16 13:00 | PROGRESS NOTE ---
Progress Note Cardiology Providers to CC ~ Subjective Subjective Patient seen and examined this morning. Patient improving and diuresing well on IV dobutamine and Lasix. Objective Result Diagram: 12/16/24 0600 12/16/24 0600 Objective General: Normal body habitus, no acute distress, HEENT: Sclerae clear, PERRL, gums without lesions or bleeding, oropharynx clear without erythema or exudate. Neck: Supple without enlargement of the thyroid, or lymphadenopathy, Chest: Normal size and shape, no tenderness, nonlabored breathing, Breath sounds clear to auscultation. Heart: Irregularly irregular, variable S1. Abdomen: Soft, nontender, no organomegaly, bowel sounds present. Extremities: No edema cyanosis or clubbing. Coagulation Studies Laboratory Tests Test 12/14/24 20:20 Prothrombin Time 17.5 SECONDS (9.0-12.0) H INR International Normalized Ratio 1.8 INR Activated Partial Thromboplast Time 49 SECONDS (22-32) H Coagulation Comments Problem\Assessment\Plan Additional Plan 1. 79-year-old male with left intertrochanteric fracture: Management per hospitalist and orthopedic surgeon 2. Dilated cardiomyopathy with ejection fraction 25-30%: Stress test negative for ischemia. Optimize GDM T therapy 3.: Diabetes hypertension hyperlipidemia: Counseled on coronary risk factor modification 3. Chronic systolic heart failure: Patient diuresing well with IV dobutamine and Lasix. Titrate diuretics as required. 4. Atrial fibrillation,? Chronic: Controlled rate with digoxin and carvedilol. 5.: Anemia, keep hemoglobin close to 10 g% EMILIANO MARTINEZ MD Dec 16, 2024 13:00
--- NOTE | 2024-12-16 14:59 | RADIOLOGY REPORT ---
PROCEDURE: ULTRASOUND GUIDED THORACENTESIS USING TEMPORARY CATHETER HISTORY: 79 Male with SOB AND LARGE RIGHT requiring thoracentesis. DOCUMENTATION: Informed consent was obtained and a procedural time out was performed. TECHNIQUE: Ultrasound was used to locate the RIGHT pleural fluid collection with an image archived i n the PACS. The skin over the RIGHT posterior hemithorax was sterilely prepped, draped, and infiltrat ed with 1% lidocaine. Under real time ultrasound guidance, the RIGHT pleural space was accessed with a 19-gauge Yueh needle and connected to Vacutainers. The Yueh catheter was advanced, the needle was removed and the temporary catheter was advanced and connected to the Vacutainer. Approximately 1.6 li ters of STRAW COLORED fluid was removed. The temporary catheter was removed and sterile dressings we re applied. FINDINGS: Ultrasound demonstrates a RIGHT pleural effusion. Imaging confirms the needle tip within t he fluid. IMPRESSION: SUCCESSFUL ULTRASOUND GUIDED THORACENTESIS. PROCEDURE BY RESIDENT
[2024-12-16 15:10] LABS: BFSOURCE RIGHT PLEURAL FLD; PLEURAL FLUID PH 7.617 (7.63-7.65)
[2024-12-16 15:13] LABS: GLUCOSE,BODY FLUID 173 MG/DL; LDH,BODY FLUID 88 U/L; TOTAL PROTEIN,BODY FLUID 3.4 G/DL
--- NOTE | 2024-12-16 15:17 | PROCEDURE NOTE- Residance ---
Procedure Note Providers to CC CC: NORA FAITH, ABRIL ~ Planned Procedure Right thoracentesis Indications Right pleural effusion Informed Consent Consent was obtained from the patient prior to the procedure. Indications, risks, and benefits were explained at length. Description A time out was performed and after the chest x-ray was reviewed, the appropriate side was confirmed and marked. My hands were washed immediately prior to the procedure. I wore a surgical cap, mask with protective eyewear, sterile gown and sterile gloves throughout the procedure. The patient was prepped and draped in a sterile manner using chlorhexidine scrub after the patient was positioned in the usual fashion. A total of six ml of 1% lidocaine was used to anesthetize the skin, subcutaneous tissue, superior aspect of the rib periosteum and parietal pleura. A 2 cm incision was then made parallel to the rib in the midaxillary line at the level of the 8th rib. The subcutaneous tissue superficial and superior to the rib was dissected bluntly to the level of the pleura. The pleura was then entered bluntly. Yellow fluid was noted from the pleural space. A 12 Syriac chest tube was then inserted using my finger as a guide. Needle was inserted easily, 1600 mL of yellowish fluid was obtained. 60 mL were symptoms for studies. A sterile occlusive dressing was placed over the insertion site. No immediate complications were noted. A post-procedure chest x-ray negative for pneumothorax. Estimated blood loss is minimal. Estimated Blood Loss Minimal Complication None X-Ray Findings Postprocedure chest x-ray was obtained without signs of pneumothorax. Date of Service: Dec 16, 2024 Billing Provider: DOMI MANNING MD, FRANCO LUIS, ABRIL Dec 16, 2024 15:17
[2024-12-16 15:36] LABS: BFSOURCE RIGHT PLEURAL FLD
[2024-12-16 15:37] LABS: BFAPPEAR CLEAR; BFCOLOR YELLOW; BFVOLUME 57 ML
--- NOTE | 2024-12-16 15:37 | PROGRESS NOTE- Residence ---
Progress Note - Resident Providers to CC Resident Creating Document: NORA FAITH RES ~ Antibiotic Timeout Antibiotic Ordered?: Yes Subjective The patient has been evaluated at the bedside. Reports pain control with pain management at the level of the left hip. Objective Vital Signs Date Time Temp Pulse Resp B/P (MAP) Pulse Ox O2 Delivery O2 Flow Rate FiO2 12/16/24 15:00 97.7 98 14 100/63 (75) 98 Room Air 12/16/24 14:40 2.0 12/16/24 07:50 28 Physical exam: General: Awake, oriented to place, person and time. Cooperative during physical exam. HEENT: Conjunctive are pale, sclerae clear, no icterus, pupil is equal in both sides, reactive to light, no ear discharge, no pharyngeal erythema or an edema. Neck: Supple, no JVD, no lymphadenopathy and thyromegaly. Chest: Equal air entry in bilateral lungs, no wheezing or rhonchi evidenced. Cardiovascular: S1-S2 regular sinus rhythm and, regular rate, no gallops, no rubs, no murmurs Abdomen: No visible peristalsis, Bowel sounds present on auscultation, soft, nontender, no guarding, no rigidity Extremities: No obvious deformities, 1+ pedal edema bilaterally, capillary refill intact, peripheral pulsations are intact on both sides, left lower extremity shortened it, tender to palpation in the level of the left hip. Central Nervous System: No focal neurological deficits, no motor or sensory weakness in all 4 extremities, could move all 4 extremities, 2+ deep tendon reflexes, negative Babinski. Musculoskeletal: Tender to palpation in the level of the left hip, no scoliosis and back tenderness. Skin: Warm and dry. Result Diagram: 12/16/24 0600 12/16/24 06 Coagulation Studies Laboratory Tests Test 12/14/24 20:20 Prothrombin Time 17.5 SECONDS (9.0-12.0) H INR International Normalized Ratio 1.8 INR Activated Partial Thromboplast Time 49 SECONDS (22-32) H Coagulation Comments Assessment Assessment 79-year-old male patient came to the hospital transferred from [facility] due to left intertrochanteric hip fracture. Per records of [facility] the patient was transferred to [facility] due to unavailability of anesthesia. Plan Plan Acute commuted minimally displaced left intertrochanteric periprosthetic fracture-ruled out: S/p total hip arthroplasty with intact hardware CT pelvis without contrast shows acute comminuted minimally displaced left periprosthetic intertrochanteric fracture. Dr. Harry was consulted by the ED physician. NPO after midnight for possible surgery. Hold Pradaxa for anticipated surgery. Type and screen ordered. Revised cardiac risk index is three points which is 15% risk of major cardiac event. Re-evaluate in the a.m. with bank credit card collection clerk and anesthesiologist if patient can be cleared for hip surgery given extensive cardiac history. 12/15/2024: Dr. Harry evaluated the patient. Ordered CT scan and x-ray of the hip. The patient will need cardiac clearance. Hip x-ray: Left hip arthroplasty in place. Proximal left femoral cerclage wire. There is a mildly displaced periprosthetic fracture of the proximal left femur. Heterotopic ossification is seen adjacent to the proximal left femur. Bony demineralization. Calcified athero sclerosis. 12/16/2024: Dr. Harry does not recommend, as per Dr. Harry this patient was transferred on necessarily for surgery because is not indicated. Physical therapy evaluation with weight bearing as tolerated. Physical therapy evaluated the patient. They recommended post-acute care. Awaiting for placement. Case management actively working. Atrial fibrillation with RVR EKG shows atrial fibrillation with RVR with heart rate of 118. One dose of IV metoprolol given. Continue home medication carvedilol 12.5 mg b.i.d. after med rec. Med rec is pending. Hold Pradaxa. Amadou Vasc score greater than two. Continue telemetry monitoring. 12/15/2024: Dr. Figueroa was consulted for cardiac clearance. The patient currently denies chest pain. Started on carvedilol 12.5 mg b.i.d. Thoracentesis performed today. The patient will be resumed on Pradaxa. Acute hypoxemic respiratory failure CHF with reduced ejection fraction, EF 25-30% Large right pleural effusion-resolved: Metabolic alkalosis Pulmonary hypertension Pro BNP is . Chest x-ray shows large right pleural effusion and possible small left pleural effusion. We need a consent from for thoracocentesis as patient is unable to make decisions. Thoracentesis not ordered yet. Evaluate in a.m. with repeat chest x-ray if effusion size decreases after administering Lasix. Patient takes Lasix 20 mg b.i.d. at home. Started on Lasix IV 40 mg b.i.d. scheduled. Monitor I&O. Continue losartan, Jardiance and carvedilol after med rec. Consider adding spironolactone/Entresto with caution given history of CKD. Echocardiogram done at [facility] today shows EF of 25-30% with left ventricular hypertrophy, severely reduced right ventricle function and RV, LV dilation. Pulmonary artery systolic pressure is 57 mmHg. ABG ordered in the view of metabolic alkalosis. Follow up. Respiratory therapy consulted. Duo nebs q.4 PRN. 12/15/2024: Dr. Nieto consulted for cardiac clearance. Lexiscan: Mild non reversible defect is present in the inferior wall which may represent small chronic infarct versus artifact. Left ventricular ejection fraction is 28%. Echocardiogram: RVSP 29 mmHg, LVEF 25%. Left ventricle normal LV size and function. Mild concentric hypertrophy. Decreasing Lasix to 20 mg b.i.d. Daily weights. Strict I&O. 12/16/2024: Currently on dobutamine drip. Recommended by Dr. Figueroa. Underwent thoracentesis today. 1600 mL were drained. Follow-up pleural fluid analysis and serum LDH. Continue Lasix 20 mg b.i.d. On digoxin 250 mcg. Spironolactone 12.5 mg daily. Empagliflozin 10 mg daily. On carvedilol 12.5 mg b.i.d. GLADYS versus CKD, unknown stage and baseline Post renal GLADYS-ruled out: Possible cardiorenal syndrome BUN is elevated 28, creatinine 1.84. Patient does have a history of CKD with unknown baseline. Continue monitoring CMP. Avoid nephrotoxic medication. Patient does not have a PCP hence baseline is unknown. Not on IV fluids due to proBNP of . The patient does not have history of congestive heart failure. Kidney ultrasound: Slightly small bilateral kidneys without evidence of hydronephrosis. Partially obscured urinary bladder due to overlying bowel gas. Normocytic normochromic anemia Likely anemia of chronic disease secondary to CKD Hemoglobin is 9.1. Unknown baseline. Iron, TIBC, serum ferritin, FOBT ordered. Follow up. Patient is unable to give any history about melena or GI bleed. He is currently on Pradaxa which is on hold for possible surgery. Follow-up occult stool. Iron 35, TIBC 295, percentage saturation 12, ferritin 40. Iron deficiency anemia. Mild protein calorie malnutrition Albumin 3.3. Ensure t.i.d. Hypertension Continue home medications losartan 25 mg and Coreg 12.5 mg b.i.d. after med rec. 12/15/2024: Med reconciliation done. Carvedilol 12.5 mg continued. Holding losartan due to soft blood pressure. Type 2 diabetes mellitus Follow up with A1c and lipid panel. Blood sugar at [place] was 313. Patient takes 10 units Lantus and lispro as needed at home. Currently on hyperglycemia protocol with 15 Units Lantus Per Weight calculation. On hyperglycemia/hypoglycemia protocol. Increasing Lantus to 18 units HS. Continue short-acting insulin medium dose sliding scale. Hyperlipidemia Atorvastatin 40 mg daily. BPH Tamsulosin 0.4 mg daily. Code Status: Full code. DVT Prophylaxis: Heparin 5000 units b.i.d. Analgesia/Sedation: [place], morphine p.r.n. Lines/Tubes: PIV Gi Prophylaxis: None Nutrition: 75 carb controlled diet. NPO after midnight PT: Recommended post-acute care. Prognosis: Guarded. Disposition: Continue medical management. Dr. Harry did not recommended surgical repair. Awaiting for rehab placement. Nora Ignacio Internal Medicine Resident [facility] Date of Service: Dec 16, 2024 Billing Provider: KATT MILAN MD Common Visit Codes: [id number] INP/OBS CARE(HIGH) NORA FAITH, RES Dec 16, 2024 15:37 KATT MILAN MD Dec 17, 2024 14:01
[2024-12-16 15:38] LABS: BF RBC COUNT 209 /CU MM; BF WBC COUNT 108 /CU MM (0-1000); LYMPHOCYTES,BODY FLUID 46 %; MONOCYTES,BODY FLUID 44 %; NEUTROPHILS,BODY FLUID 10 %
[2024-12-16 15:39] LABS: BF MESOTHELIAL CELLS FEW
--- NOTE | 2024-12-16 15:51 | RADIOLOGY REPORT ---
CHEST RADIOGRAPH Indication: s/p Thoracentesis Technique: Single frontal view of the chest was obtained Comparison: 12/14/2024 FINDINGS: The cardiac silhouette is unremarkable. The lungs demonstrate bibasilar airspace opacities. The pulmo nary vasculature is prominent. Small right and small to moderate left pleural effusions, decreased on the right. There is no pneumothorax. IMPRESSION: As above
[2024-12-16] MEDS: metoprolol tartrate 1mg/ml inj IV ONE (18:42)
--- NOTE | 2024-12-16 19:34 | CARDIOLOGY REPORT ---
APPROVED REPORT EXAM: Limited 2D, Doppler, and color-flow Echocardiogram. Patient Location: 402 Heart Rate: 108-140 bpm Rhythm: ATRIAL FIBRILLATION Indications ABNORMAL EKG PRE-OP HIP FRACTURE ATRIAL FIBRILLATION HYPERTENSION MD CHRONIC RENAL FAILURE Burr Bench Operator: NONE Previous echo: NONE 2D Dimensions RVDd 3.1 cm LA Diam4.2 cm Ao Asc Diam.3.92 cmCO 3.6 L/min M-Mode Dimensions Left Atrium(MM) 4.12 (2.5-4.0cm) IVSd 1.13 (0.7-1.1cm) LVDd 4.46 (4.0-5.6cm) Aortic Root 3.42 (2.2-3.7cm) PWd 1.06 (0.7-1.1cm) Aortic Cusp Exc 1.19 (1.5-2.0cm) IVSs 1.41 cm LVDs 3.67 (2.0-3.8cm) FS (%) 17 % PWs 1.54 cm ESV(Teich) 55.2 ml LVEF(%) 35 (>50%) Aortic Valve AoV Peak Vicente. 142.8 cm/s AO Peak GR. 8.2 mmHg Tricuspid Valve TR P. Velocity 220 cm/s RAP ESTIMATE 10 mmHg TR Peak Gr. 19 mmHg RVSP 29 mmHg LEFT VENTRICLE Normal LV size and severe LV systolic dysfunction.. Mild concentric hypertrophy. There is severe LV s ystolic dysfunction present. Overall estimated LVEF is about 25%. RIGHT VENTRICLE RV is upper limit normal size. Estimated PA systolic pressure of 29 mm of mercury. ATRIA Left atrium is mildly dilated. Mobile interatrial septum - no flow detected. AORTIC VALVE Trileaflet AV appears mildly sclerotic without stenosis. Trace insufficiency. MITRAL VALVE Mild MV annular and papillary calcification without stenosis. Moderate, eccentric regurgitation. TRICUSPID VALVE TV appears structurally normal with trace regurgitation. PULMONIC VALVE Normal PV without stenosis, mild insufficiency. GREAT VESSELS Aortic root is normal in size. Ascending aorta is normal in size. PERICARDIUM Normal pericardium. No effusion. Bilateral pleural effusion present, l right more than left Other Information Study Quality: Adequate Conclusion Normal LV size and severe LV systolic dysfunction. Mild concentric hypertrophy. There is severe LV s ystolic dysfunction present. Overall estimated LVEF is about 25%. RV is upper limit normal size. Estimated PA systolic pressure of 29 mm of mercury. Trileaflet AV appears mildly sclerotic without stenosis. Trace insufficiency. Mild MV annular and papillary calcification without stenosis. Moderate, eccentric regurgitation. TV appears structurally normal with trace regurgitation. Normal pericardium. No effusion. Bilateral pleural effusion present, l right more than left
--- NOTE | 2024-12-16 23:21 | CONSULTATION ---
DATE OF CONSULTATION: 12/15/2024 DICTATING PHYSICIAN: BEAU Figueroa MD CARDIOLOGY CONSULTATION REQUESTING PHYSICIAN: Jalyn Weeks MD REASON FOR EVALUATION: The patient with right hip fracture for preop evaluation. HISTORY OF PRESENT ILLNESS: The patient is a 79-year-old male with a history of diabetes, hypertension, hyperlipidemia, cardiomyopathy, CHF, atrial fibrillation, and dementia. Apparently, the patient is followed by at [place]. He does not have a compliance aide. Apparently, according to his ex- who lives with him, telephone number [phone], he was hospitalized at [facility] a few weeks ago with congestive heart failure. Apparently, the patient has a baseline dementia, probably mild to moderate, unable to provide any reliable history. Most of the history is obtained from the chart and his . Apparently, the patient on 12/14/2024 woke up and fell and could not get [facility] was found to have a left intertrochanteric periprosthetic fracture and they were not able to operate on due to shortage of leather belt loop cutter and was transferred to [facility]. The patient just ambulates around the house. He reports dyspnea ongoing, NYHA dyspnea class II to III. PAST MEDICAL HISTORY: * Diabetes. * Hypertension. * Hyperlipidemia. * Cardiomyopathy. * Chronic systolic heart failure. * The patient's echocardiogram preliminary report shows ejection fraction 25% with a PA systolic 29 mmHg. He has got moderate eccentric MR, trace TR. His proBNP elevated at and the patient has cardiomegaly with a right pleural effusion on chest x-ray. * History of cerebrovascular accident. * A-fib, on Pradaxa, on carvedilol. * Chronic anemia. * Chronic kidney disease. PAST SURGICAL HISTORY: The patient had left hip total arthroplasty. FAMILY HISTORY: His parents in their age 60s and 70s. Details unknown. 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 REVIEW OF SYMPTOMS: HEENT: Wear glasses, mild hearing impairment. RESPIRATORY: Exertional shortness of breath. MUSCULOSKELETAL: Arthralgias, history of joint pain. CENTRAL NERVOUS SYSTEM: History of dementia. MEDICATIONS: At home, atorvastatin 40 mg p.o. at bedtime, carvedilol 12.5 mg p.o. b.i.d., Jardiance 10 mg p.o. daily, insulin, losartan 25 mg p.o. daily, tamsulosin, trazodone 50 mg p.o. daily. PHYSICAL EXAMINATION: GENERAL: The patient is a 79-year-old irritable male who does not want to answer questions and probably prefers to be left alone. VITAL SIGNS: Temperature 97.4, pulse 115, blood pressure 121/55 on 1 liter of oxygen. CARDIAC: Mild JVD present. Cardiac examination irregularly irregular variable S1, S2 normal. No S3. Decreased breath sounds on the right more than left. EXTREMITIES: 2+ ankle swelling. hip shows acute comminuted minimally displaced periprosthetic left intertrochanteric femoral fracture. Hip x-ray from 12/14/2024. DIAGNOSTIC DATA: EKG: Atrial fibrillation [address]-T changes. His myocardial perfusion scan showed inferior fixed defect. No reversibility. Ejection fraction 28%. Chest x-ray: Large right pleural effusion with cardiomegaly, small left pleural effusion. LABORATORY DATA: Sodium 143, potassium 3.4, chloride 102, carbon dioxide of 36.3, BUN 28, creatinine 1.97, triglycerides 155, cholesterol 106, LDL of 48, HDL of 35. WBC 6.8, hemoglobin is 8.2, hematocrit 25.2, platelet count 230. IMPRESSION AND PLAN: * A 79-year-old male with left hip fracture managed per hospitalist. * Cardiomyopathy, optimized treatment, GDMT, carvedilol, Jardiance, losartan, and spironolactone. * Chronic systolic heart failure, elevated proBNP, titrated diuretics are required. Keep him euvolemic. Tolerance is a fluid restriction. Low-salt diet. * A-fib with RVR. Increase carvedilol to 12.5 mg p.o. b.i.d. The patient is on 12.5 mg. Since he has marginal blood pressure, we would add digoxin for rate control 0.125 mg p.o. daily. * Chronic anemia. Keep his hemoglobin above 10. Other comorbidities include CKD and [id number] dementia, PTSD. * Right pleural effusion, evaluate for ultrasound-guided thoracentesis. BV MD Henry TID: [id number] RECEIPT: [id number] GALINDO/JEWELL/ANUJA
[2024-12-16] MEDS: digoxin 125mcg (0.125mg) tablet PO SCH (23:43)
[2024-12-17] VITALS (27 sets, daily range): BP systolic 98–135; BP diastolic 43–82; PULSE 64–140; RESP 12–22; TEMP 97.3–98.6; O2SAT 90–97
[2024-12-17] MEDS: haloperidol lactate 5mg/ml inj IM ONE (02:34)
[2024-12-17 06:18] LABS: MEAN PLATELET VOLUME 7.4 FL (7.4-10.4); RED CELL DISTRIBUTION WIDTH 17.1 % (11.5-14.5)
[2024-12-17 06:41] LABS: CREATININE 1.88 MG/DL (0.60-1.10); TOTAL CARBON DIOXIDE 36.7 MMOL/L (24-32); eCRCL 29 ML/MIN; eGFR 35 ML/MIN
--- NOTE | 2024-12-17 08:52 | PROGRESS NOTE ---
Progress Note Cardiology Providers to CC ~ Subjective Subjective Patient seen and examined this morning. Patient had right thoracentesis yesterday. Being evaluated for transferred to rehabilitation. Objective Result Diagram: 12/17/2435 12/17/2435 Objective General: Conscious alert minimally talkative. e. Neck: Supple without enlargement of the thyroid, or lymphadenopathy, Chest: Normal size and shape, no tenderness, nonlabored breathing, Breath sounds improved after thoracentesis Heart: Irregularly irregular variable S1. Abdomen: Soft, nontender, no organomegaly, bowel sounds present. Extremities: Mild edema present Coagulation Studies Laboratory Tests Test 12/14/24 20:20 Prothrombin Time 17.5 SECONDS (9.0-12.0) H INR International Normalized Ratio 1.8 INR Activated Partial Thromboplast Time 49 SECONDS (22-32) H Coagulation Comments Problem\Assessment\Plan Additional Plan 1. * A 79-year-old male with left hip fracture managed per hospitalist. 2. * Cardiomyopathy, optimized treatment, GDMT, carvedilol, Jardiance, losartan, and spironolactone. 3. * Chronic systolic heart failure, elevated proBNP, titrated diuretics are required. Keep him euvolemic. Tolerance is a fluid restriction. Low-salt diet. Continue Lasix and dobutamine. 3. Right pleural effusion status post thoracentesis on 12/16/2024 4. * A-fib with RVR. Increase carvedilol to 12.5 mg p.o. b.i.d. The patient is on 12.5 mg. Since he has marginal blood pressure, we would add digoxin for rate control 0.125 mg p.o. daily. Goal is rate control and anticoagulation. 4. * Chronic anemia. Keep his hemoglobin above 10. Patient on iron supplementation now 5. Other comorbidities include CKD and [id number] dementia, PTSD. EMILIANO MARTINEZ MD Dec 17, 2024 08:52
[2024-12-17] MEDS: DOBUTamine-DoBUTrex 500mg/D5W 250 ML IV SCH (15:21)
--- NOTE | 2024-12-17 18:00 | PROGRESS NOTE- Residence ---
Progress Note - Resident Providers to CC Resident Creating Document: BILLY MEDLEY RES ~ Antibiotic Timeout Antibiotic Ordered?: No Subjective The patient has been evaluated at the bedside. Pain is controlled. Patient will be discharged to [facility] tomorrow. Currently on dobutamine 3 mcg. Objective Vital Signs Date Time Temp Pulse Resp B/P (MAP) Pulse Ox O2 Delivery O2 Flow Rate FiO2 12/17/24 17:00 108 127/65 (85) 12/17/24 15:31 97.4 18 96 Room Air 12/17/24 08:48 0 21 Result Diagram: 12/17/24 0535 12/17/24 0535 General: Awake, oriented to place, person and time. Cooperative during physical exam. HEENT: Conjunctive are pale, sclerae clear, no icterus, pupil is equal in both sides, reactive to light, no ear discharge, no pharyngeal erythema or an edema. Neck: Supple, no JVD, no lymphadenopathy and thyromegaly. Chest: Equal air entry in bilateral lungs, no wheezing or rhonchi evidenced. Cardiovascular: S1-S2 regular sinus rhythm and, regular rate, no gallops, no rubs, no murmurs Abdomen: No visible peristalsis, Bowel sounds present on auscultation, soft, nontender, no guarding, no rigidity Extremities: No obvious deformities, 1+ pedal edema bilaterally, capillary refill intact, peripheral pulsations are intact on both sides, left lower extremity shortened it, tender to palpation in the level of the left hip. Central Nervous System: No focal neurological deficits, no motor or sensory weakness in all 4 extremities, could move all 4 extremities, 2+ deep tendon reflexes, negative Babinski. Musculoskeletal: Tender to palpation in the level of the left hip, no scoliosis and back tenderness. Skin: Warm and dry. Coagulation Studies Laboratory Tests Test 12/14/24 20:20 Prothrombin Time 17.5 SECONDS (9.0-12.0) H INR International Normalized Ratio 1.8 INR Activated Partial Thromboplast Time 49 SECONDS (22-32) H Coagulation Comments Assessment Assessment 79-year-old male patient came to the hospital transferred from [facility] due to left intertrochanteric hip fracture. Per records of [facility] the patient was transferred to [facility] due to unavailability of anesthesia. Plan Plan Acute commuted minimally displaced left intertrochanteric periprosthetic fracture-ruled out: S/p total hip arthroplasty with intact hardware CT pelvis without contrast shows acute comminuted minimally displaced left periprosthetic intertrochanteric fracture. Dr. Harry was consulted by the ED physician. NPO after midnight for possible surgery. Hold Pradaxa for anticipated surgery. Type and screen ordered. Revised cardiac risk index is three points which is 15% risk of major cardiac event. Re-evaluate in the a.m. with food court team member and anesthesiologist if patient can be cleared for hip surgery given extensive cardiac history. 12/15/2024: Dr. Harry evaluated the patient. Ordered CT scan and x-ray of the hip. The patient will need cardiac clearance. Hip x-ray: Left hip arthroplasty in place. Proximal left femoral cerclage wire. There is a mildly displaced periprosthetic fracture of the proximal left femur. Heterotopic ossification is seen adjacent to the proximal left femur. Bony demineralization. Calcified athero sclerosis. 12/16/2024: Dr. Harry does not recommend, as per Dr. Harry this patient was transferred on necessarily for surgery because is not indicated. Physical therapy evaluation with weight bearing as tolerated. Physical therapy evaluated the patient. They recommended post-acute care. Awaiting for placement. Case management actively working. 12/17/2024 Patient will be discharged to [facility] tomorrow. Physical therapy with weight-bearing as tolerated with the patient. Atrial fibrillation with RVR EKG shows atrial fibrillation with RVR with heart rate of 118. One dose of IV metoprolol given. Continue home medication carvedilol 12.5 mg b.i.d. after med rec. Med rec is pending. Hold Pradaxa. Amadou Vasc score greater than two. Continue telemetry monitoring. 12/15/2024: Dr. Figueroa was consulted for cardiac clearance. The patient currently denies chest pain. Started on carvedilol 12.5 mg b.i.d. Thoracentesis performed today. The patient will be resumed on Pradaxa. 12/17/2024 Continuing carvedilol 12.5 mg b.i.d., digoxin 125 mcg daily We will continue Pradaxa 75 mg q.12 on discharge. Acute hypoxemic respiratory failure CHF with reduced ejection fraction, EF 25-30% Large right pleural effusion-resolved: Metabolic alkalosis Pulmonary hypertension Pro BNP is . Chest x-ray shows large right pleural effusion and possible small left pleural effusion. We need a consent from for thoracocentesis as patient is unable to make decisions. Thoracentesis not ordered yet. Evaluate in a.m. with repeat chest x-ray if effusion size decreases after administering Lasix. Patient takes Lasix 20 mg b.i.d. at home. Started on Lasix IV 40 mg b.i.d. scheduled. Monitor I&O. Continue losartan, Jardiance and carvedilol after med rec. Consider adding spironolactone/Entresto with caution given history of CKD. Echocardiogram done at [facility] today shows EF of 25-30% with left ventricular hypertrophy, severely reduced right ventricle function and RV, LV dilation. Pulmonary artery systolic pressure is 57 mmHg. ABG ordered in the view of metabolic alkalosis. Follow up. Respiratory therapy consulted. Duo nebs q.4 PRN. 12/15/2024: Dr. Nieto consulted for cardiac clearance. Lexiscan: Mild non reversible defect is present in the inferior wall which may represent small chronic infarct versus artifact. Left ventricular ejection fraction is 28%. Echocardiogram: RVSP 29 mmHg, LVEF 25%. Left ventricle normal LV size and function. Mild concentric hypertrophy. Decreasing Lasix to 20 mg b.i.d. Daily weights. Strict I&O. 12/16/2024: Currently on dobutamine drip. Recommended by Dr. Figueroa. Underwent thoracentesis today. 1600 mL were drained. Follow-up pleural fluid analysis and serum LDH. Continue Lasix 20 mg b.i.d. On digoxin 250 mcg. Spironolactone 12.5 mg daily. Empagliflozin 10 mg daily. On carvedilol 12.5 mg b.i.d. 12/17/2024 Decreased the rate of dobutamine to 3 mcg, we will be discontinued tomorrow Continue Lasix 20 mg b.i.d., lisinopril 10 mg, Jardiance 10 mg, losartan 25 mg, Aldactone 12.5 mg. GLADYS versus CKD, unknown stage and baseline Post renal GLADYS-ruled out: Possible cardiorenal syndrome BUN is elevated 28, creatinine 1.84. Patient does have a history of CKD with unknown baseline. Continue monitoring CMP. Avoid nephrotoxic medication. Patient does not have a PCP hence baseline is unknown. Not on IV fluids due to proBNP of . The patient does not have history of congestive heart failure. Kidney ultrasound: Slightly small bilateral kidneys without evidence of hydronephrosis. Partially obscured urinary bladder due to overlying bowel gas. 12/17/2024 Creatinine remains stable, increased from 1.7-1.8 today Normocytic normochromic anemia Likely anemia of chronic disease secondary to CKD Hemoglobin is 9.1. Unknown baseline. Iron, TIBC, serum ferritin, FOBT ordered. Follow up. Patient is unable to give any history about melena or GI bleed. He is currently on Pradaxa which is on hold for possible surgery. Follow-up occult stool. Iron 35, TIBC 295, percentage saturation 12, ferritin 40. Iron deficiency anemia. Mild protein calorie malnutrition Albumin 3.3. Ensure t.i.d. Hypertension Continue home medications losartan 25 mg and Coreg 12.5 mg b.i.d. after med rec. 12/15/2024: Med reconciliation done. Carvedilol 12.5 mg continued. Holding losartan due to soft blood pressure. 12/17/2024 Continue losartan 25 mg daily , hold if blood pressure< 100. Type 2 diabetes mellitus Follow up with A1c and lipid panel. Blood sugar at [place] was 313. Patient takes 10 units Lantus and lispro as needed at home. Currently on hyperglycemia protocol with 15 Units Lantus Per Weight calculation. On hyperglycemia/hypoglycemia protocol. Increasing Lantus to 18 units HS. Continue short-acting insulin medium dose sliding scale. Hyperlipidemia Atorvastatin 40 mg daily. BPH Tamsulosin 0.4 mg daily. Code Status: Full code. DVT Prophylaxis: Heparin 5000 units b.i.d. Analgesia/Sedation: [place], morphine p.r.n. Lines/Tubes: PIV Gi Prophylaxis: None Nutrition: 75 carb controlled diet. NPO after midnight PT: Recommended post-acute care. Prognosis: Guarded. Disposition: Patient will be discharged tomorrow. Billy Medley M.D PGY2 Date of Service: Dec 17, 2024 Billing Provider: KATT MILAN MD Common Visit Codes: [id number] INP/OBS CARE(HIGH) BILLY MEDLEY, RES Dec 17, 2024 17:59 KATT MILAN MD Dec 18, 2024 17:41
[2024-12-18] VITALS (8 sets, daily range): BP systolic 106–133; BP diastolic 37–69; PULSE 97–112; RESP 13–20; TEMP 97.1–97.3; O2SAT 93–97
[2024-12-18 06:09] LABS: MEAN PLATELET VOLUME 7.1 FL (7.4-10.4); RED CELL DISTRIBUTION WIDTH 17.2 % (11.5-14.5)
[2024-12-18 06:28] LABS: CREATININE 1.78 MG/DL (0.60-1.10); TOTAL CARBON DIOXIDE 35.8 MMOL/L (24-32); eCRCL 31 ML/MIN; eGFR 37 ML/MIN
[2024-12-18] MEDS ORDERED: potassium Cl 40MEQ/1/2NS 520ml 520 ML IV PRN (07:30)
[2024-12-18] MEDS: vancomycin inj. 750 MG in normal saline 250ml IV soln 250 ML IV SCH (07:38)
[2024-12-18] MEDS: potassium Cl 20 mEq SR tablet PO PRN (07:39)
[2024-12-18] MEDS ORDERED: VANCOMYCIN/WATER FOR INJ (PEG) 750MG/150 ML IVPB IV SCH (08:00)
[2024-12-18] MEDS: K and/or MAG REPLACEMENT MC SCH (08:00)
[2024-12-18] MEDS: digoxin 250mcg/ml 2ml ampule IV ONE (08:42)
--- NOTE | 2024-12-18 14:25 | PROGRESS NOTE- Residence ---
Progress Note - Resident Providers to CC Resident Creating Document: PAT WALLACE, ABRIL CC: EMILIANO MARTINEZ MD ~ Antibiotic Timeout Antibiotic Ordered?: No Subjective Patient is examined at bedside. Patient does not have any subjective complaints. Patient states that his shortness of breath is improved. Objective Vital Signs Date Time Temp Pulse Resp B/P (MAP) Pulse Ox O2 Delivery O2 Flow Rate FiO2 12/18/24 11:15 97.3 99 18 106/37 (60) 97 Room Air 12/18/24 08:30 0.0 21 Result Diagram: 12/18/2437 12/18/24536 General: Alert, awake, oriented, not in acute distress HEENT: PERRLA, no icterus, pallor, lymphadenopathy, carotid bruit Respiratory system: Bilateral vesicular breath sounds heard, no adventitious breath sounds CVS: Irregular heart rate, S1-S2 heard, no murmurs/rubs/gallop GI: Soft, nontender, no organomegaly, no guarding/rigidity, bowel sounds present Neuro: No focal neurological deficits present Extremities: 1+ pitting edema present on bilateral feet Skin: Warm and dry Coagulation Studies Laboratory Tests Test 12/14/24 20:20 Prothrombin Time 17.5 SECONDS (9.0-12.0) H INR International Normalized Ratio 1.8 INR Activated Partial Thromboplast Time 49 SECONDS (22-32) H Coagulation Comments Assessment Assessment 79-year-old male patient came to the hospital transferred from [facility] due to left intertrochanteric hip fracture. Patient has an ejection fraction of 25-30%. Cardiology has been consulted in view of heart failure and AFib. Plan Plan Acute commuted minimally displaced left intertrochanteric periprosthetic fracture-ruled out Management as per primary care team Atrial fibrillation with RVR [id number]: 4 Patient continues to be in AFib with heart rate in the 90s since 8:00 a.m. today. Patient came in with a heart rate in the 110s. Continue telemetry monitoring. Continue carvedilol 12.5 mg p.o. b.i.d., digoxin 125 mcg once daily, Pradaxa 75 mg p.o. q.12h Acute exacerbation of CHF with reduced ejection fraction, EF 25-30% Cardiomyopathy Optimization with GDM T: Carvedilol, Jardiance, losartan, spironolactone Titrate Lasix as required Gradual weaning of dobutamine in can be discontinued by the end of day Fluid restriction 1.5 L, low-salt diet Follow up with Cardiology as outpatient after discharge Large right pleural effusion status post thoracocentesis on 12/16 GLADYS versus CKD, unknown stage and baseline Normocytic normochromic anemia Likely anemia of chronic disease secondary to CKD Mild protein calorie malnutrition Managed as per hospitalist team Risk factors: * Hypertension * Continue home medications losartan 25 mg and Coreg 12.5 mg b.i.d. after med rec. * Type 2 diabetes mellitus * Management as per hospitalist team. Adequate A1c controlled * Hyperlipidemia * Atorvastatin 40 mg daily. Code Status: Full code. DVT Prophylaxis: Heparin 5000 units b.i.d. Nutrition: Heart healthy diet Prognosis: Guarded. Disposition: Patient can be discharged per the primary care team's plan Pat Wallace MD Internal Medicine, PGY 2 Patient seen and examined by Dr. Manuel NIEVES Patient to follow up with PMD after discharge Date of Service: Dec 18, 2024 Billing Provider: EMILIANO MARTINEZ MD, SIVA, RES Dec 18, 2024 14:25 EMILIANO MARTINEZ MD Dec 18, 2024 16:25
--- NOTE | 2024-12-18 15:41 | DISCHARGE SUMMARY-Residence ---
Discharge Summary Providers to Resident Creating Document: FABIANA MEDLEYABRIL PAN ~ Discharge Summary Admission Diagnosis: Left hip fracture Hospital Course DATE OF ADMISSION: 12/14/2024 DATE OF DISCHARGE: 12/18/2024 Labs at the time of discharge WBC 6.8 Hemoglobin 7.4 Sodium 144 Potassium 3.4 Bicarb 35.8 Creatinine 1.78 BUN 38 Iron 35 Ferritin 40 TIBC 295 Pleural fluid analysis-pH 7.6, yellow, clear, WBC 108, RBC 209, neutrophils 10, lymphocytes 46, monocytes 44, mesothelial cells few, total protein 3.4, LDH 88, glucose 173 Hip x-ray Left hip arthroplasty in place. Proximal left femoral cerclage wire. There is a mildly displaced periprosthetic fracture of the proximal left femur. Heterotopic ossification is seen adjacent to the proximal left femur. Bony demineralization. Calcified athero sclerosis. Lower extremity CT 1. In regards to the clinical question, comminuted periprosthetic proximal femoral fracture without significant displacement however with anterior cortical step-off. 2. Predominant fracture plane at the level of the lesser trochanter and base of the greater trochanter, above of the cerclage wire. 3. Intramuscular hematoma along the vastus intermedius with significant swelling. Echocardiogram Normal LV size and severe LV systolic dysfunction. Mild concentric hypertrophy. There is severe LV systolic dysfunction present. Overall estimated LVEF is about 25%. RV is upper limit normal size. Estimated PA systolic pressure of 29 mm of mercury. Trileaflet AV appears mildly sclerotic without stenosis. Trace insufficiency. Mild MV annular and papillary calcification without stenosis. Moderate, eccentric regurgitation. TV appears structurally normal with trace regurgitation. Normal pericardium. No effusion. Bilateral pleural effusion present, l right more than left Lexiscan Mild non reversible defect is present in the inferior wall which may represent small chronic infarct versus artifact. Left ventricular ejection fraction is 28%. Chest CT 1. Large right and moderate left pleural effusions with near complete collapse of the right lower lobe and dependent sublobar atelectasis in the remaining lobes. 2. Cardiomegaly. Coronary artery disease. 3. 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 Renal ultrasound 1. Slightly small bilateral kidneys without evidence of hydronephrosis. 2. Partially obscured urinary bladder due to overlying bowel gas. Discharge Diagnosis\Comment: Acute commuted minimally displaced left intertrochanteric periprosthetic fracture-ruled out: History of total hip arthroplasty with intact hardware Atrial fibrillation with rapid ventricular rate Acute hypoxemic respiratory failure CHF with reduced ejection fraction, EF 25-30% Large right pleural effusion-resolved: Metabolic alkalosis Pulmonary hypertension GLADYS on CKD Normocytic normochromic anemia Protein calorie malnutrition Hypertension Diabetes mellitus Operations\Procedures: Thoracentesis Consultants: Dr. Manisha Harry Complications: None Condition on DC: Stable Discharge Summary: This is a 79-year-old male with a history of stroke, dementia, AFib on Pradaxa, CHF with reduced ejection fraction 25-30%, hypertension, CT, chronic anemia, CKD was transferred from [facility] for a left intertrochanteric hip fracture. Per records from [facility], he had a left intertrochanteric periprosthetic fracture and they were not able to operate on him due to unavailability of anesthesia. Hence he was transferred to our facility. He fell due to loss of balance on his left side and injured his left elbow, leg. There was no head strike or loss of consciousness at the time of fall according to his . ED course at [facility]: CT head and spine showed no acute intracranial abnormalities except for degenerative changes in spine. CT pelvis without contrast showed acute comminuted minimally displaced periprosthetic fracture in the left hip. Also showed left total hip arthroplasty with intact hardware. He was transferred for orthopedic surgery. Dr. Harry evaluated the patient, ordered CT scan and x-ray of the hip. X-ray Findings showed Left hip arthroplasty in place. Proximal left femoral cerclage wire. There is a mildly displaced periprosthetic fracture of the proximal left femur. CT scan findings. comminuted periprosthetic proximal femoral fracture without significant displacement however with anterior cortical step-off. Considering the above findings, Dr. Harry does not recommend any surgery and recommended physical therapy with weight-bearing as tolerated. Cardiology was consulted for cardiac clearance as it was initially thought that patient would undergo surgery for fracture. Patient was in atrial fibrillation with rapid ventricular rate, continued home medication carvedilol 12.5 mg b.i.d. and digoxin was started 125 mcg. Pradaxa was initially held with the daughter surgery, later continued. Patient also developed acute hypoxemic respiratory failure secondary to CHF exacerbation, CHF with reduced ejection fraction 25-30%. Was started on Lasix 40 mg b.i.d. was started on dobutamine by Dr. Figueroa, continued Jardiance 10 mg and spironolactone 12.5 mg, losartan 25 mg. The dobutamine was later decreased to 3 mcg and discontinued. She also had GLADYS on CKD, baseline is unknown. Kidney ultrasound showed slightly small bilateral kidneys without evidence of hydronephrosis. Creatinine remained stable throughout her stay. Also has normocytic normochromic anemia, anemia likely secondary to CKD. Stool occult blood negative. Iron studies showed iron 35, TIBC 295, ferritin 40, on ferrous sulfate 325 mg b.i.d.. Continued home medications for hypertension and placed on Lantus and insulin protocol for type 2 diabetes. Patient was stable enough to be discharged home. At the time of discharge patient had the following physical examination findings General: Awake, oriented to place, person and time. Cooperative during physical exam. HEENT: Conjunctive are pale, sclerae clear, no icterus, pupil is equal in both sides, reactive to light, no ear discharge, no pharyngeal erythema or an edema. Neck: Supple, no JVD, no lymphadenopathy and thyromegaly. Chest: Equal air entry in bilateral lungs, no wheezing or rhonchi evidenced. Cardiovascular: S1-S2 regular sinus rhythm and, regular rate, no gallops, no rubs, no murmurs Abdomen: No visible peristalsis, Bowel sounds present on auscultation, soft, nontender, no guarding, no rigidity Extremities: No obvious deformities, 1+ pedal edema bilaterally, capillary refill intact, peripheral pulsations are intact on both sides, left lower extremity shortened it, tender to palpation in the level of the left hip. Central Nervous System: No focal neurological deficits, no motor or sensory weakness in all 4 extremities, could move all 4 extremities, 2+ deep tendon reflexes, negative Babinski. Musculoskeletal: Tender to palpation in the level of the left hip, no scoliosis and back tenderness. Skin: Warm and dry. Follow up with PCP in two weeks. Follow up with Dr. Harry. Continue physical therapy, weight-bearing as tolerated. Follow up with Dr. Figueroa Continue carvedilol 12.5 mg b.i.d, digoxin 125 mcg daily, Pradaxa 75 mg daily. Continue Lasix 20 mg b.i.d., Jardiance 10 mg daily, losartan 20 mg daily, spironolactone 12.5 mg daily. Follow up with nurse head for CKD. Avoid NSAIDs Continue iron sulfate 325 mg b.i.d. p.o. Continue ciprofloxacin 250 mg b.i.d. for five day for UTI. Call 911 or return to ER in case of chest pain, shortness of breadth, palpitations, increased pain. *Problems/Diagnosis: (1) Hip fracture, left Status: Acute (2) Atrial fibrillation (3) CHF (congestive heart failure) Status: Acute (4) Renal insufficiency Status: Acute Total Time Spent on D/C: Up to 30 Minutes Date of Service: Dec 18, 2024 Billing Provider: KATT MILAN MD Common Visit Codes: 72700-GFO/OBS DISCH DAY >30min Problem Qualifiers (1) Hip fracture, left: Encounter type: initial encounter Fracture type: closed Qualified Codes: S72.002A - Fracture of unspecified part of neck of left femur, initial encounter for closed fracture (2) CHF (congestive heart failure): Heart failure type: unspecified Heart failure chronicity: unspecified Qualified Codes: I50.9 - Heart failure, unspecified MONA MEDLEY, RES Dec 18, 2024 14:00 KATT MILAN MD Dec 18, 2024 17:41
[2024-12-20] MEDS ORDERED: VANCOMYCIN LEVEL IV ONE (07:30)
== END 2024-12-18 13:53 | DRG 291 ==
LOC: ER 17:31 → ED HOLD 22:25 → PCU 3S 12-15 02:58
PROVIDERS: ADMIT Internal Medicine; ATTEND Internal Medicine
PROC: 4A02XM4 Measurement of Cardiac Total Activity, External Approach (ICD-10-PCS; 2024-12-15)
PROC: 3E033HZ Introduction of Radioactive Substance into Peripheral Vein, Percutaneous Approach (ICD-10-PCS; 2024-12-15)
PROC: 0W993ZZ Drainage of Right Pleural Cavity, Percutaneous Approach (ICD-10-PCS; principal; 2024-12-16)
DX: I13.0 Hypertensive heart and chronic kidney disease with heart failure and stage 1 through stage 4 chronic kidney disease, or unspecified chronic kidney disease (principal); I50.23 Acute on chronic systolic (congestive) heart failure; J96.01 Acute respiratory failure with hypoxia; E87.3 Alkalosis; E44.1 Mild protein-calorie malnutrition; J91.8 Pleural effusion in other conditions classified elsewhere; E11.22 Type 2 diabetes mellitus with diabetic chronic kidney disease; I48.91 Unspecified atrial fibrillation; F43.10 Post-traumatic stress disorder, unspecified; N18.9 Chronic kidney disease, unspecified; F03.B0 Unspecified dementia, moderate, without behavioral disturbance, psychotic disturbance, mood disturbance, and anxiety; E78.5 Hyperlipidemia, unspecified; D63.1 Anemia in chronic kidney disease; I42.9 Cardiomyopathy, unspecified; Z86.73 Personal history of transient ischemic attack (TIA), and cerebral infarction without residual deficits; Z87.891 Personal history of nicotine dependence; Z88.8 Allergy status to other drugs, medicaments and biological substances; Z88.1 Allergy status to other antibiotic agents; Z91.012 Allergy to eggs; Z79.899 Other long term (current) drug therapy; Z79.4 Long term (current) use of insulin; Z68.24 Body mass index [BMI] 24.0-24.9, adult
CPT/HCPCS: 32555; 36415; 36600; 71045; 71250; 72170; 72192; 73502; 76770; 78452; 80048; 80053; 80061; 80162; 81001; 82565; 82570; 82728; 82803; 82945; 82948; 83036; 83540; 83550; 83605; 83615; 83735; 83880; 83930; 83935; 83986; 84132; 84145; 84156; 84157; 84300; 84484; 84540; 85018; 85025; 85610; 85651; 85730; 86885; 86900; 86901; 87040; 87070; 87077; 87081; 87088; 87186; 87207; 89051; 93005; 93017; 93308; 94760; 97110; 97162; 97530; 99291; A6590; A9500; G0378; J1160; J1250; J1630; J1644; J1815; J1938; J2270; J3370; J3490; J7040; J7050